=== PATIENT | female | born 1970 | race Caucasian/White ===

== ENCOUNTER 2023-10-05 10:33 | Outpatient (CLI) | payer MEDICAID ==
[~2023-10-05] VITALS: Ht 198.1 cm; Wt 78.5 kg
[2023-10-05 11:01] VITALS: PULSE 66; RESP 16; O2SAT 98
[2023-10-05] MEDS: albuterol 2.5 MG/3 ML nebule NEB ONE (11:19)
== END 2023-10-05 23:59 | disposition home or self-care (01) ==
LOC: RT 10:33
PROVIDERS: ATTEND Family Medicine
DX: R06.2 Wheezing (principal)
CPT/HCPCS: 94060; 94760